=== PATIENT | female | born 1950 | race Caucasian/White ===

== ENCOUNTER → 2017-12-16 | Outpatient (CLI) | payer MEDICARE, OTHER | LOC: M WHC 09:45 | DX: Z12.31 Encounter for screening mammogram for malignant neoplasm of breast (principal); Z78.0 Asymptomatic menopausal state; Z80.0 Family history of malignant neoplasm of digestive organs; Z98.890 Other specified postprocedural states | CPT/HCPCS: 77067 ==

== ENCOUNTER → 2019-05-20 | Outpatient (REF) | payer MEDICARE, OTHER | LOC: M SFHCWAGY 10:54 | PROVIDERS: ATTEND Nurse Practitioner Women's Health | DX: Z12.4 Encounter for screening for malignant neoplasm of cervix (principal) ==

== ENCOUNTER → 2019-05-20 | Outpatient (CLI) | payer MEDICARE, OTHER ==
--- NOTE | 2019-05-20 15:11 | REPMRS ---
Patient History The patient states she had a clinical breast exam in 05/2019. Patient is postmenopausal. Family history of colorectal cancer at age 35 in father, colorectal cancer at age 50 or over in paternal aunt, colorectal cancer at age 50 or over in paternal grandfather. Benign excisional biopsy of the right breast, 1994. No Hormone Replacement Therapy Digital Woman Screen Mammo: May 20, 2019 - Exam #: [id number] Bilateral CC and MLO view(s) were taken. Technologist: Norma Kennedy, Technologist Prior study comparison: December 16, 2017, digital woman screen mammo performed at [facility]. September 19, 2015, digital woman screen mammo performed at [facility]. January 08, 2012, digital woman screen mammo performed at [facility] [facility]. FINDINGS: There are scattered fibroglandular densities. There is a moderate amount of residual fibroglandular tissue which is fairly symmetric. There is no interval development of dominant mass, architectural distortion, or grouped microcalcification typical of malignancy. There has been no change in the appearance of the mammogram from the prior studies. 3-D tomosynthesis shows no additional findings. Assessment: BI-RADS/ACR category 1 mammogram. Negative Mammogram. Recommendation Routine screening mammogram of both breasts in 1 year (for women over age 40). This patient's Lifetime Breast Cancer RIsk is estimated at 5.8 %. This mammogram was interpreted with the aid of an FDA-approved computer-aided dectection system. Electronically Signed By: Brent Pineda MD 05/20/19 5861
--- NOTE | 2019-05-24 10:23 | DEXA ---
AP SPINE L1 - L4 1.234 0.3 2.0 LT FEMUR TOTAL 0.808 -1.6 -0.2 LT NECK 0.783 -1.8 -0.2 RT FEMUR TOTAL 0.860 -1.2 0.2 RT NECK 0.833 -1.5 0.1 TOTAL BODY TOTAL OTHER COMMENTS: Normal bone densitometry of the spine. There is low bone density of the hips. The density of the spine has increased 7.3% since the initial exam on 10/12/2008. The spine density has increased 0.8% since the most recent exam on 09/19/2015. The density of the left hip has decreased 6.0% since the initial exam on 10/12/2008. The density of the left hip has decreased 1.7% since the most recent exam on 09/19/2015. The density of the right hip has decreased 3.3% since the initial exam on 10/12/2008. The density of the right hip has increased 0.5% since the most recent exam on 09/19/2015. FOLLOW-UP: Recommendation for the next bone density exam: 2 years. HADLEY
== END ==
LOC: M WHC 10:59
PROVIDERS: ATTEND Nurse Practitioner Women's Health
DX: Z12.31 Encounter for screening mammogram for malignant neoplasm of breast (principal); Z78.0 Asymptomatic menopausal state; M85.80 Other specified disorders of bone density and structure, unspecified site; Z80.0 Family history of malignant neoplasm of digestive organs; Z86.018 Personal history of other benign neoplasm; Z12.4 Encounter for screening for malignant neoplasm of cervix
CPT/HCPCS: 77063; 77067; 77080; G0101

== ENCOUNTER → 2020-05-23 | Outpatient (CLI) | payer MEDICARE, OTHER ==
--- NOTE | 2020-06-07 14:44 | REPMRS ---
Patient History The patient states she had a clinical breast exam in 05/2019. Patient is postmenopausal. Family history of colorectal cancer at age 35 in father, colorectal cancer at age 50 or over in paternal aunt, colorectal cancer at age 50 or over in paternal grandfather. Benign excisional biopsy of the right breast, 1994. No Hormone Replacement Therapy Digital Woman Screen Mammo: May 23, 2020 - Exam #: [id number] Bilateral CC and MLO view(s) were taken. Technologist: Roya Barba, Technologist Prior study comparison: May 20, 2019, bilateral digital woman screen mammo performed at [facility]. December 16, 2017, digital woman screen mammo performed at [facility]. September 19, 2015, digital woman screen mammo performed at [facility]. FINDINGS: There are scattered fibroglandular densities. The Volpara volumetric breast density category is:B. There has been no change in the appearance of the mammogram from the prior studies. There is a mild amount of scattered fibroglandular density which is fairly symmetric. There is no interval development of dominant mass, architectural distortion, or grouped microcalcification suggestive of malignancy. 3-D tomosynthesis shows no additional findings. Assessment: BI-RADS/ACR category 1 mammogram. Negative Mammogram. Recommendation Routine screening mammogram of both breasts in 1 year (for women over age 40). This patient's Lifetime Breast Cancer Risk is estimated at 5.5 %. This mammogram was interpreted with the aid of an FDA-approved computer-aided dectection system. Electronically Signed By: Brent Pineda MD 06/07/20 [id number]
== END ==
LOC: M WHC 16:04
PROVIDERS: ATTEND Nurse Practitioner Women's Health
DX: Z12.31 Encounter for screening mammogram for malignant neoplasm of breast (principal)

== ENCOUNTER → 2021-06-21 | Outpatient (CLI) | payer MEDICARE, OTHER ==
--- NOTE | 2021-06-21 11:16 | REPMRS ---
Patient History The patient states she has not had a clinical breast exam in over a year. Family history of colorectal cancer at age 35 in father, colorectal cancer at age 50 or over in paternal aunt, colorectal cancer at age 50 or over in paternal grandfather. Benign excisional biopsy of the right breast, 1994. No Hormone Replacement Therapy Patient states no breast complaints today. Patient has signed MRS History Sheet. Digital Woman Screen Mammo: June 21, 2021 - Exam #: [id number] Bilateral CC and MLO view(s) were taken. Technologist: Roya Barba, Technologist Prior study comparison: May 23, 2020, bilateral digital woman screen mammo performed at [facility]. May 20, 2019, bilateral digital woman screen mammo performed at [facility]. FINDINGS: There are scattered fibroglandular densities. Screening. Digital screening (2D) mammography was performed bilaterally in the CC and MLO projections. Additionally, breast tomosynthesis (3D mammography) was performed bilaterally in the CC and MLO projections. Todays exam was compared to the prior exam/exams. By history, the patient has no complaints of a palpable breast abnormality or other significant breast complaints. The breasts are unchanged in size and shape. There are no jaylen-soft tissue densities or spiculated masses. There is no internal architectural distortion.Once again, stable benign appearing calcifications are seen. There are no suspicious jaylen-calcific clusters. Skin thickening or nipple retraction is not present. IMPRESSION: BI-RADS Category 2- Benign Findings. There is no evidence of malignant alteration of the breasts. Followup examination recommended in one year. The Volpara volumetric breast density category is B, there are scattered areas of fibroglandular densities. This mammogram was read with the assistance of [employer],an FDA approved computer aided detection system for mammography. The lifetime Tyrer-Cuzick score is 5.2% Negative x-ray reports should not delay surgical consultation if a dominant or clinically suspicious mass is present. Not all breast cancers can be identified by mammography. Therefore, we recommend that you continue to perform regular breast self-examination and physical examination and then promptly contact your physician of any concerns or changes. Adenosis and dense breasts may obscure an underlying neoplasm. Assessment: BI-RADS/ACR category 2 mammogram. Benign Findings. Recommendation Routine screening mammogram of both breasts in 1 year. Electronically Signed By: Dimitri Dougherty DO 06/21/21 [id number]
--- NOTE | 2021-06-21 11:24 | DEXAMM ---
INDICATION: OSTEOPOROSIS. COMPARISON: 05/20/2019 as well as other prior exams. TECHNIQUE: Bone density was measured using dual-energy x-ray absorptiometry (DEXA). FINDINGS: AP SPINE L1-L4 BMD 1.199 g/cm2 Young Adult T-Score 0.0 Age Matched Z-Score 1.7. LT FEMUR, TOTAL BMD 0.814 g/cm2 Young Adult T-Score -1.5 Age Matched Z-Score -0.1. LT NECK BMD 0.749 g/cm2 Young Adult T-Score -2.1 Age Matched Z-Score -0.4. RT FEMUR, TOTAL BMD 0.843 g/cm2 Young Adult T-Score -1.3 Age Matched Z-Score 0.2. RT NECK BMD 0.843 g/cm2 Young Adult T-Score -1.4 Age Matched Z-Score 0.3. IMPRESSION: There is normal bone density of the spine. There is low bone density of the left hip. There is low bone density of the right hip. The density of the spine has increased 4.3% since the initial exam on 10/12/2008. The density of the spine decreased 2.8% since most recent exam on 05/20/2019. The density of the left hip has decreased 5.3% since initial exam on 10/12/2008. The density of the left hip has increased 0.7% since most recent exam on 05/20/2019. The density of the right hip has decreased 5.2% since the initial exam on 10/12/2008. The density of the right hip has decreased 2.0% since the most recent exam on 05/20/2019. FOLLOW-UP: Recommendation for the next bone density exam: 2 years. <Electronically signed by Stanley Dubon > 06/21/21 [id number]
== END ==
LOC: M WHC 09:45
PROVIDERS: ATTEND Nurse Practitioner Family
DX: Z12.31 Encounter for screening mammogram for malignant neoplasm of breast (principal); M81.0 Age-related osteoporosis without current pathological fracture; R92.8 Other abnormal and inconclusive findings on diagnostic imaging of breast; M85.89 Other specified disorders of bone density and structure, multiple sites

== ENCOUNTER → 2022-07-09 | Outpatient (CLI) | payer MEDICARE, OTHER | LOC: M WHC 11:58 | DX: Z12.31 Encounter for screening mammogram for malignant neoplasm of breast (principal) ==

== ENCOUNTER → 2023-07-11 | Outpatient (CLI) | payer MEDICARE, OTHER | LOC: M WHC 09:09 | PROVIDERS: ATTEND Nurse Practitioner Family | DX: Z12.31 Encounter for screening mammogram for malignant neoplasm of breast (principal); Z13.820 Encounter for screening for osteoporosis; M85.89 Other specified disorders of bone density and structure, multiple sites ==

== ENCOUNTER → 2024-07-13 | Outpatient (CLI) | payer MEDICARE, OTHER | LOC: M WHC 10:31 | PROVIDERS: ATTEND Nurse Practitioner | DX: Z12.31 Encounter for screening mammogram for malignant neoplasm of breast (principal) ==

== ENCOUNTER → 2025-07-25 | Outpatient (CLI) | payer MEDICARE, OTHER | LOC: M WHC 10:16 | PROVIDERS: ATTEND Nurse Practitioner Family | DX: Z12.31 Encounter for screening mammogram for malignant neoplasm of breast (principal); Z78.0 Asymptomatic menopausal state; M85.89 Other specified disorders of bone density and structure, multiple sites; R92.323 Mammographic fibroglandular density, bilateral breasts ==